=== PATIENT | female | born 1985 | race Caucasian/White ===

== ENCOUNTER 2018-08-02 07:25 | Inpatient (IN) | payer BC ==
[2018-08-02] MEDS ORDERED: AMPICILLIN - 2 GM in SODIUM CHLORIDE 100 ML IVPB ONE (07:45)
[2018-08-02 08:46] VITALS: BMI 29.8
[2018-08-02 08:52] LABS: BASO % 0.9 % (0-2.0); EOS % 2.1 % (0-4.5); HEMATOCRIT 34.6 % (32.4-45.2); HEMOGLOBIN 12.5 GM/dL (10.7-15.3); LYMPH % 25.7 % (8-40); MCH 32.8 pg (25.7-33.7); MEAN PLT VOLUME 10.2 fl (7.5-11.1); NEUT % 64.3 % (42.8-82.8); PLATELET COUNT 122 K/MM3 (134-434); RDW 13.8 % (11.6-15.6); WHITE BLOOD COUNT 6.3 K/mm3 (4.0-10.0)
[2018-08-02] MEDS ORDERED: ELECTROLYTE-148 SOLN 1,000 ML IV SCH (09:00)
[2018-08-02 09:11] LABS: INR 0.97 (0.83-1.09); PROTHROMBIN TIME (PATIENT) 11.4 SEC (9.7-13.0)
[2018-08-02 09:14] LABS: ACTIVATED PTT 26.3 SECONDS (25.2-36.5)
[2018-08-02] MEDS ORDERED: FENTANYL/BUPIVACAINE/NS/PF - PCEA - 50 ML DISP.SYRIN EP ONE ×2 (09:26→14:47)
[2018-08-02 09:27] LABS: ANION GAP 10 MMOL/L (8-16); BLOOD UREA NITROGEN 6 mg/dL (7-18); CALCIUM 7.8 mg/dL (8.5-10.1); CHLORIDE 108 mmol/L (98-107); CO2 22 mmol/L (21-32); CREATININE 0.4 mg/dL (0.55-1.3); GLUCOSE,RANDOM 95 mg/dL (74-106); SODIUM 140 mmol/L (136-145)
[2018-08-02] MEDS ORDERED: BUTORPHANOL TARTRATE 1 MG/ML VIAL ONE ×2 (09:28)
[2018-08-02] MEDS ORDERED: PROMETHAZINE HCL 25 MG/1 ML VIAL ONE (09:28)
--- NOTE | 2018-08-02 09:37 | HP ---
Past Medical History - Primary Care Physician PCP:: Uche Junior - Admission Chief Complaint: 32yo P1 with at EGA 38wk admitted with spontaneous labor History of Present Illness: SROM at 6:30am Vaginal GBS positive - Past Medical History Cardiovascular: No: AFIB, Aneurysm, Aortic Insufficiency, Aortic Stenosis, CAD, CHF, Deep Vein Thrombosis, HTN, Hyperlipdemia, LA, Mitral Insufficiency, Mitral Stenosis, Murmur, Pulmonary Hypertension, Other Pulmonary: No: Asthma, Bronchitis, Cancer, COPD, O2 Dependent, Pneumonia, Previously Intubated, Pulmonary Embolus, Pulmonary Fibrosis, Sleep Apnea, Other Gastrointestinal: No: Ascites, Cancer, Constipation, Crohn's Disease, Diverticulitis, Diverticulosis, Esophageal Varices, Gastritis, GERD, GI Bleed, Hemorrhoids, Hiatal Hernia, Inflamatory Bowel Disease, Irritable Bowel Disease, Pancreatitis, Peptic Ulcer Disease, Ulcerative Colitis, Other Hepatobiliary: No: Cirrhosis, Cholelithiasis, Cholecystitis, Choledocholithiasis , Hepatitis A, Hepatitis B, Hepatitis C, Other Renal/: No: Renal Failure, Renal Inusuff, BPH, Cancer, Hematuria, Hemodialysis , Neurogenic Bladder, Renal Calculi, UTI, Other Reproductive: No: Ectopic , Endometriosis, Fibroids, PID, Polycystic Ovary Syndrome, Postmenopausal, Other ...: 3 ...Para: 1 () ...Term: 0 ...: 1 ...Spon : 1 ...Induced : 0 ...Multiple Gestation: 0 ...LMP: 11/12/17 ... Weeks Gestation by Dates: 37.2 ...EDC by Dates: 08/20/18 ...EDC by Sono: 08/17/18 Heme/Onc: No: Anemia, B12 Deficiency, Bleeding Disorder, Cancer, Current Chemotherapy, Current Radiation Therapy, Hemochromatosis, Hypercoaguable State, Myeloproliferative Synd, Sickle Cell Disease, Sickle Cell Trait, Thrombocytopenia, Other Infectious Disease: No: AIDS, C-Diff, Herpes Zoster, HIV, MRSA, STD's, Tuberculosis, VREF, Other Musculoskeletal: No: Bursitis, Chronic low back pain, Hemiparesis, Hemiplegia, Osteoarthritis, Paraplegia, Other Rheumatology: No: Fibromyalgia, Gout, Lupus, Rheumatoid Arthritis, Sarcoidosis, Vasculitis, Other ENT: No: Allergic Rhinitis, Sinusitis, Other Endocrine: No: Johan's Disease, Marietta's Disease, Diabetes Insipidus, Diabetes Mellitus, Hyperparathyroidism, Hyperthyroidism, Hypothyroidism, Osteopenia, SIADH, Other Dermatology: No: Basal Cell, Cellulitis, Eczema, Melanoma, Psoriasis, Squamous Cell, Other - Past Surgical History Past Surgical History: Yes: Breast Biopsy (left breast fibroadenoma excised) Hx Myomectomy: No Hx Transabdominal Cerclage: No - Smoking History Smoking history: Never smoked Have you smoked in the past 12 months: No - Alcohol/Substance Use Hx Alcohol Use: No History of Substance Use: reports: None - Social History Usual Living Arrangement: Yes: With Spouse, With Child ADL: Independent History of Recent Travel: No Home Medications - Allergies Allergies/Adverse Reactions: Allergies Allergy/AdvReac Type Severity Reaction Status Date / Time No Known Allergies Allergy Verified 08/02/18 08:13 - Home Medications Home Medications: Ambulatory Orders Pnv No.95/Ferrous Fum/Folic AC [ Vitamin Tablet] 1 each PO DAILY Family Disease History - Family Disease History Family History: Unremarkable Review of Systems - Review of Systems Constitutional: reports: Other (labor/contractions) Eyes: reports: No Symptoms HENT: reports: No Symptoms Neck: reports: No Symptoms Cardiovascular: reports: No Symptoms Respiratory: reports: No Symptoms Gastrointestinal: reports: No Symptoms Genitourinary: reports: No Symptoms Breasts: reports: No Symptoms Reported Musculoskeletal: reports: No Symptoms Integumentary: reports: No Symptoms Neurological: reports: No Symptoms Endocrine: reports: No Symptoms Hematology/Lymphatic: reports: No Symptoms Psychiatric: reports: No Symptoms Pain Intensity: 0 Physical Exam - Maternity Vital Signs: Vital Signs Temperature 97.9 F 08/02/18 08:00 Pulse Rate 90 08/02/18 08:00 Respiratory Rate 20 08/02/18 08:00 Blood Pressure 124/76 08/02/18 08:00 O2 Sat by Pulse Oximetry (%) Constitutional: Yes: Well Nourished, No Distress, Calm Eyes: Yes: WNL, Conjunctiva Clear HENT: Yes: WNL, Atraumatic, Normocephalic Neck: Yes: WNL, Supple, Trachea Midline Cardiovascular: Yes: WNL, Regular Rate and Rhythm Lungs: Clear to auscultation Breast(s): Yes: WNL - Abdominal Exam/OB Fundal Height: 38 Number of Fetuses: Single Presentation: Vertex Contractions: Yes Regularity: Regular Intensity: Unaware Monitor Mode: External Heart Rate (range): 130 Heart Rate Location: Midline Category: I Accelerations: Non-Uniform Decelerations: None - Vaginal Exam/OB Vaginal Bleediing: No Speculum Exam: No Dilatation (cm): 4 Effacement (%): 80 Amniotic Membrane Status: Leaking Amniotic Fluid: Yes: Clear Presentation: Vertex/Position Station: -2 - Physical Exam Musculoskeletal: Yes: WNL Extremities: Yes: WNL Edema: No Integumentary: Yes: WNL Deep Tendon Reflex Grade: Normal +2 ...Motor Strength: WNL Psychiatric: Yes: WNL, Alert, Oriented - Labs Lab Results: CBC, BMP 08/02/18 08:45 08/02/18 08:45 Hemorrhage Risk Assessment - Risk Factors Medium Risk Factors: Yes: None High Risk Factors: Yes: None Risk Score: 1 Risk Level: Medium Risk Imaging - Results Ultrasound: Report Reviewed Assessment/Plan 32yo P1 with at EGA 38wk admitted with spontaneous labor. Fetus with Category I tracing. Pt requested epidural. Plan to monitor labor progress.
[2018-08-02] MEDS ORDERED: NALOXONE HCL 0.4 MG/ML VIAL IVPUSH PRN (09:50)
[2018-08-02] MEDS ORDERED: LIDO 2%/EPI 1:200000 PRESRVFRE (20 ML SDVIAL) ONE (09:51)
[2018-08-02] MEDS ORDERED: TUBERCULIN PPD 5 TU/0.1ML SYRINGE (IN PATIENT USE ONLY) ID ONE (10:00)
[2018-08-02] MEDS: FENTANYL/BUPIVACAINE/NS/PF - PCEA - 50 ML DISP.SYRIN EP SCH ×2 (10:05→14:45)
[2018-08-02] MEDS: ELECTROLYTE-148 SOLN 1,000 ML IV SCH ×2 (10:31→14:53)
[2018-08-02] MEDS ORDERED: AMPICILLIN SODIUM 1 GM VIAL ONE ×2 (11:42→16:00)
[2018-08-02] MEDS ORDERED: SODIUM CHLORIDE 100 ML IVPB ONE ×2 (11:42→16:00)
[2018-08-02] MEDS: AMPICILLIN - 1 GM in SODIUM CHLORIDE 100 ML IVPB SCH ×2 (11:47→16:00)
[2018-08-02] MEDS ORDERED: BUPIVACAINE HCL/PF 0.25% (2.5MG/ML) 10 ML VIAL ONE (14:46)
[2018-08-02] MEDS ORDERED: OXYTOCIN 20 UNITS in 0.9% NS 20 UNIT/1,000 ML INFUS.BAG IV ONE (15:18)
[2018-08-02] MEDS ORDERED: LIDOCAINE HCL 1% PRESERVATIVE FREE - 30ML VIAL ONE (16:48)
[2018-08-02] MEDS ORDERED: IBUPROFEN 600 MG TABLET (FP) PO ONE (17:44)
[2018-08-02] MEDS: IBUPROFEN 600 MG TABLET (FP) PO PRN ×2 (17:45→21:48)
[2018-08-02] MEDS ORDERED: METHYLERGONOVINE MALEATE 0.2 MG/1 ML AMP IM PRN (17:47)
[2018-08-02] MEDS ORDERED: BENZOCAINE 20% 57 GM BOTTLE TP PRN (17:47)
[2018-08-02] MEDS ORDERED: BISACODYL 10 MG SUPP.RECT RC PRN (17:47)
[2018-08-02] MEDS ORDERED: WITCH HAZEL 50% (TUCKS) 40 PAD/JAR PAD TP PRN (17:47)
[2018-08-02] MEDS ORDERED: BENZOCAINE 28 GM HEMORRHOIDAL OINTMENT TP PRN (17:47)
[2018-08-02] MEDS ORDERED: OXYTOCIN 20 UNITS in 0.9% NS 1,000 ML IV SCH (18:00)
[2018-08-02] MEDS ORDERED: OXYTOCIN 20 UNITS in 0.9% NS 20 UNIT/1,000 ML INFUS.BAG IV SCH (18:00)
[2018-08-02] MEDS: oxyCODONE HCL 5 MG TABLET PO PRN (21:50)
[2018-08-03] MEDS: ACETAMINOPHEN 325 MG TABLET (FP) PO PRN ×3 (02:21→16:24)
[2018-08-03] MEDS: IBUPROFEN 600 MG TABLET (FP) PO PRN ×4 (02:21→21:20)
[2018-08-03] MEDS: oxyCODONE HCL 5 MG TABLET PO PRN ×3 (04:52→21:21)
[2018-08-03 07:14] LABS: BASO % 0.5 % (0-2.0); EOS % 2.1 % (0-4.5); HEMATOCRIT 29.6 % (32.4-45.2); HEMOGLOBIN 10.4 GM/dL (10.7-15.3); LYMPH % 20.1 % (8-40); MCH 32.2 pg (25.7-33.7); MCHC 35.1 g/dl (32.0-36.0); MEAN CELL VOLUME 91.8 fl (80-96); MEAN PLT VOLUME 9.8 fl (7.5-11.1); MONO % 5.3 % (3.8-10.2); PLATELET COUNT 120 K/MM3 (134-434); RBC 3.23 M/mm3 (3.60-5.2); RDW 13.9 % (11.6-15.6); WHITE BLOOD COUNT 9.5 K/mm3 (4.0-10.0)
--- NOTE | 2018-08-03 07:59 | PN ---
Post Progress Note - Subjective Subjective: Patient without acute complaints. Reports tolerating oral intake without nausea or vomiting. Ambulating without dizziness. Denies fevers or chills. Pain well controlled with oral pain medication. without difficulty. Passing flatus. Post Day: 1 Type of Delivery: Vital Signs: Vital Signs Temperature 98.6 F 08/03/18 05:14 Pulse Rate 82 08/03/18 05:14 Respiratory Rate 18 08/03/18 05:14 Blood Pressure 120/86 08/03/18 05:14 O2 Sat by Pulse Oximetry (%) 99 08/02/18 17:45 Breast Exam: Yes: Soft Uterus: Yes: Fundus Firm, Fundus below umbilicus Abdomen/GI: Yes: Abdomen soft, Passing flatus, Tolerating PO. No: Abdominal Distention, Tender Lochia: Yes: Serosa Lochia, amount: Small Extremities: Yes: Calves non-tender, Edema (trace) Activity: Ambulating - Labs Labs: CBC WBC 6.3 K/mm3 (4.0-10.0) 08/02/18 08:45 RBC 3.80 M/mm3 (3.60-5.2) 08/02/18 08:45 Hgb 12.5 GM/dL (10.7-15.3) 08/02/18 08:45 Hct 34.6 % (32.4-45.2) 08/02/18 08:45 MCV 91.0 fl (80-96) 08/02/18 08:45 MCH 32.8 pg (25.7-33.7) 08/02/18 08:45 MCHC 36.0 g/dl (32.0-36.0) 08/02/18 08:45 RDW 13.8 % (11.6-15.6) 08/02/18 08:45 Plt Count 122 K/MM3 (134-434) L 08/02/18 08:45 MPV 10.2 fl (7.5-11.1) 08/02/18 08:45 Absolute Neuts (auto) 4.0 K/mm3 (1.5-8.0) 08/02/18 08:45 Neutrophils % 64.3 % (42.8-82.8) D 08/02/18 08:45 Lymphocytes % 25.7 % (8-40) D 08/02/18 08:45 Monocytes % 7.0 % (3.8-10.2) D 08/02/18 08:45 Eosinophils % 2.1 % (0-4.5) 08/02/18 08:45 Basophils % 0.9 % (0-2.0) D 08/02/18 08:45 Nucleated RBC % 0 % (0-0) 08/02/18 08:45 Assessment/Plan 32 yo PPD # 1 s/p , afebrile, vital signs stable, doing well 1. Continue routine care. 2. AM CBC with mild anemia 3. Rh negative, screen pending 4. Encourage ambulation 5. Continue oral pain medication 6. Anticipate discharge home day #2
[2018-08-03] MEDS: PRENATAL VITAMINS W/ FOLIC ACID TABLET (FP) PO SCH (09:33)
[2018-08-03] MEDS ORDERED: SENNOSIDES/DOCUSATE COMBO (SENNA PLUS) TABLET (UD) PO PRN (22:00)
[2018-08-04] MEDS: ACETAMINOPHEN 325 MG TABLET (FP) PO PRN (02:49)
[2018-08-04] MEDS: IBUPROFEN 600 MG TABLET (FP) PO PRN ×2 (02:49→06:43)
[2018-08-04] MEDS: oxyCODONE HCL 5 MG TABLET PO PRN (06:43)
[2018-08-04 07:32] VITALS: BP 120/71; PULSE 76; TEMP 97.7
--- NOTE | 2018-08-04 09:00 | PN ---
Post Progress Note - Subjective Subjective: No complaints. Doing well. Pain is controlled. Breast feeding w/o problems Post Day: 2 Type of Delivery: Vital Signs: Vital Signs Temperature 97.7 F 08/04/18 07:15 Pulse Rate 76 08/04/18 07:15 Respiratory Rate 18 08/04/18 07:15 Blood Pressure 120/71 08/04/18 07:15 O2 Sat by Pulse Oximetry (%) 99 08/02/18 17:45 Breast Exam: Yes: Soft Uterus: Yes: Fundus Firm, Fundus below umbilicus, Non-tender Abdomen/GI: Yes: Abdomen soft Lochia: Yes: Rubra Lochia, amount: Small Extremities: Yes: Calves non-tender Perineum: Yes: Laceration (repair intact) Activity: Ambulating - Labs Labs: CBC WBC 9.5 K/mm3 (4.0-10.0) 08/03/18 07:04 RBC 3.23 M/mm3 (3.60-5.2) L 08/03/18 07:04 Hgb 10.4 GM/dL (10.7-15.3) L 08/03/18 07:04 Hct 29.6 % (32.4-45.2) L 08/03/18 07:04 MCV 91.8 fl (80-96) 08/03/18 07:04 MCH 32.2 pg (25.7-33.7) 08/03/18 07:04 MCHC 35.1 g/dl (32.0-36.0) 08/03/18 07:04 RDW 13.9 % (11.6-15.6) 08/03/18 07:04 Plt Count 120 K/MM3 (134-434) L 08/03/18 07:04 MPV 9.8 fl (7.5-11.1) 08/03/18 07:04 Absolute Neuts (auto) 6.9 K/mm3 (1.5-8.0) 08/03/18 07:04 Neutrophils % 72.0 % (42.8-82.8) 08/03/18 07:04 Lymphocytes % 20.1 % (8-40) D 08/03/18 07:04 Monocytes % 5.3 % (3.8-10.2) 08/03/18 07:04 Eosinophils % 2.1 % (0-4.5) 08/03/18 07:04 Basophils % 0.5 % (0-2.0) 08/03/18 07:04 Nucleated RBC % 0 % (0-0) 08/03/18 07:04 Assessment/Plan 32yo P2 s/p , doing well stable, afebrile. Asymptomatic for anemia. care instructions reviewed. Continue routine care. Ambulation encouraged Discharge instruction reviewed.
--- NOTE | 2018-08-04 09:01 | DS ---
Physical Exam-FUSELAGE FRAMER Vital Signs: Vital Signs Temperature 97.7 F 08/04/18 07:15 Pulse Rate 76 08/04/18 07:15 Respiratory Rate 18 08/04/18 07:15 Blood Pressure 120/71 08/04/18 07:15 O2 Sat by Pulse Oximetry (%) 99 08/02/18 17:45 Constitutional: Yes: Well Nourished, No Distress, Calm Eyes: Yes: WNL, Conjunctiva Clear HENT: Yes: WNL, Atraumatic, Normocephalic Neck: Yes: WNL, Supple, Trachea Midline Cardiovascular: Yes: WNL, Regular Rate and Rhythm Respiratory: Yes: WNL, Regular, CTA Bilaterally Gastrointestinal: Yes: WNL, Normal Bowel Sounds, Soft ...Rectal Exam: Yes: Deferred Renal/: Yes: WNL ....Post : Yes: Uterus firm, Uterus non-tender, Slight lochia rubra Breast(s): Yes: WNL Musculoskeletal: Yes: WNL Extremities: Yes: WNL Integumentary: Yes: WNL Neurological: Yes: WNL, Alert, Oriented ...Motor Strength: WNL Psychiatric: Yes: WNL, Alert, Oriented Labs: CBC, BMP 08/03/18 07:04 08/02/18 08:45 Delivery - Delivery Vaginal Delivery: No Problems, Spontaneous Type of Anesthesia: Epidural Episiotomy/Laceration: 1st degree EBL (cc): 350 Delivery, Single - Stages of Labor Date 1st Stage Initiatied: 08/02/18 Time 1st Stage Initiated: 06:30 Date 2nd Stage Initiated: 08/02/18 Time 2nd Stage Initiated: 16:00 Date of Delivery: 08/02/18 Time of Delivery: 16:45 Time Placenta Delivered: 16:50 Placenta: Yes: Spontaneous, Normal Configuration - Condition of Infant Bag Machine Operator/Chief Dietitian Present: No Gender: Female Weight: 3.232 kg Total Hours ROM (Hrs/Mins): 10/20 - 1 Minute Total Score: 9 5 Minutes Total Score: 10 - Feeding Plan Initial Plan: Exclusive throughout hospitalization Benefits of Exclusively reinforced: Yes Discharge Summary Reason For Visit: LABOR Labor at term Procedures: Principal: Hospital Course: Normal recovery Condition: Good - Instructions Diet, Activity, Other Instructions: Physical activity Resume your normal everyday activity as tolerated no heavy lifting or exercise until seen by your surgeon. You may walk unlimited danielle of and climb stairs. You may resume driving the car when you feel safe and comfortable behind the wheel. No sexual activity as instructed. Wound care If you have a bandage, leave it on, and keep dry for 48-72 hours. After that time discard the outer bandage. If they are tapes on the skin under the out of bandage leave them in place. They will peel off in the next 7 to 10 days. Do Not Peel them off. You may shower the day after surgery. If there are tapes present on the skin, you may shower over them. Diet There are no dietary restrictions. Eat healthy, high-fiber foods. Drink 6 to 8 glasses of liquid each day. This will assist in keeping your bowels are regular. Pain management You may take Tylenol or acetaminophen or Ibuprofen (for example, Motrin, Advil etc.) from my pain prescription medication is ordered should be taken as prescribed for moderate to severe pain. Call MD for any of the following: Severe pain not relieved by medication Fever of 101 or higher Excessive bleeding or drainage on dressing Inability to urinate Referrals: Uche Junior MD [Staff Physician] - Disposition: HOME - Home Medications Comprehensive Discharge Medication List: Ambulatory Orders Pnv No.95/Ferrous Fum/Folic AC [ Vitamin Tablet] 1 each PO DAILY
[2018-08-04] MEDS: PRENATAL VITAMINS W/ FOLIC ACID TABLET (FP) PO SCH (09:39)
== END 2018-08-04 11:15 | disposition home or self-care (01) | DRG 807 ==
LOC: JLDR 07:25 → J3W 20:18
PROVIDERS: ADMIT Obstetrics & Gynecology; ATTEND Obstetrics & Gynecology
PROC: 10E0XZZ Delivery of Products of Conception, External Approach (ICD-10-PCS; principal; 2018-08-02)
PROC: 0HQ9XZZ Repair Perineum Skin, External Approach (ICD-10-PCS; 2018-08-02)
PROC: 0W8NXZZ Division of Female Perineum, External Approach (ICD-10-PCS; 2018-08-02)
DX: O70.0 First degree perineal laceration during delivery (principal); Z37.0 Single live birth; O99.013 Anemia complicating pregnancy, third trimester; Z3A.38 38 weeks gestation of pregnancy; Z22.330 Carrier of Group B streptococcus
CPT/HCPCS: 36415; 59409; 80048; 85025; 85461; 85610; 85730; 86593; 86850; 86870; 86900; 86901; 86902

== ENCOUNTER 2018-08-26 10:49 | Emergency (ER) | payer BC ==
[2018-08-26 10:55] VITALS: BP 122/67; PULSE 70; TEMP 98.2; BMI 27.1
--- NOTE | 2018-08-26 12:09 | PDOC ---
Documentation entered by Alexia Ruvalcaba SCRIBE, acting as scribe for Pacheco Martinez MD. Pacheco Martinez MD: This documentation has been prepared by the Jordon lawson Amanda, SCRIBE, under my direction and personally reviewed by me in its entirety. I confirm that the documentation accurately reflects all work, treatment, procedures, and medical decision making performed by me. History of Present Illness - General Chief Complaint: Chest Pain Stated Complaint: CHEST PAIN Time Seen by Provider: 08/26/18 11:23 History Source: Patient Exam Limitations: No Limitations - History of Present Illness Initial Comments: 08/26/18 12:05 The patient is a 32 year old female, with a significant past medical history of PE (5 years ago), 3 weeks natural delivery without complication and currently , who presents to the emergency department with 2 weeks of left sided pleuritic chest pain with associated intermittent shortness of breath and dizziness today. She states the pain is intermittent, 10/10 and sharp. She states she was prompted to come to the ED today because the chest pain was not improving after 2 weeks, and she experienced 4 hours of chest pain this morning which is longer duration than what she has been experiencing prior to today. She denies pain right now. The patient denies headache. The patient denies fever, chills, nausea, vomit, diarrhea and constipation. The patient denies dysuria, frequency, urgency and hematuria. Allergies: NKDA Social history: denies tobacco or ETOH Past History - Past Medical History Allergies/Adverse Reactions: Allergies Allergy/AdvReac Type Severity Reaction Status Date / Time No Known Allergies Allergy Verified 08/02/18 08:13 Home Medications: Ambulatory Orders Pnv No.95/Ferrous Fum/Folic AC [ Vitamin Tablet] 1 each PO DAILY Asthma: No Cancer: No Cardiac Disorders: No COPD: No Diabetes: No HTN: No Seizures: No Thyroid Disease: No - Immunization History Immunization Up to Date: No - Suicide/Smoking/Psychosocial Hx Smoking History: Never smoked Have you smoked in the past 12 months: No Information on smoking cessation initiated: No Hx Alcohol Use: No Drug/Substance Use Hx: No Substance Use Type: None Hx Substance Use Treatment: No Review of Systems - Review of Systems Able to Perform ROS?: Yes Comments:: 08/26/18 12:05 GENERAL/CONSTITUTIONAL: No fever or chills. No weakness. HEAD, EYES, EARS, NOSE AND THROAT: No change in vision. No ear pain or discharge. No sore throat. CARDIOVASCULAR: (+) chest pain, shortness of breath. RESPIRATORY: No cough, wheezing, or hemoptysis. GASTROINTESTINAL: No nausea, vomiting, diarrhea or constipation. GENITOURINARY: No dysuria, frequency, or change in urination. MUSCULOSKELETAL: No joint or muscle swelling or pain. No neck or back pain. SKIN: No rash NEUROLOGIC: (+) dizziness. No headache, loss of consciousness, or change in strength/sensation. ENDOCRINE: No increased thirst. No abnormal weight change. HEMATOLOGIC/LYMPHATIC: No anemia, easy bleeding, or history of blood clots. ALLERGIC/IMMUNOLOGIC: No hives or skin allergy. *Physical Exam - Vital Signs Last Vital Signs Temp Pulse Resp BP Pulse Ox 98.2 F 70 18 122/67 97 08/26/18 10:52 08/26/18 10:52 08/26/18 10:52 08/26/18 10:52 08/26/18 10:52 - Physical Exam Comments: 08/26/18 12:06 GENERAL: Awake, alert, and fully oriented, in no acute distress HEAD: No signs of trauma EYES: PERRLA, EOMI, sclera anicteric, conjunctiva clear ENT: Auricles normal inspection, hearing grossly normal, nares patent, oropharynx clear without exudates. Moist mucosa NECK: Normal ROM, supple, no lymphadenopathy, JVD, or masses LUNGS: Breath sounds equal, clear to auscultation bilaterally. No wheezes, and no crackles HEART: Regular rate and rhythm, normal S1 and S2, no murmurs, rubs or gallops ABDOMEN: Soft, nontender, normoactive bowel sounds. No guarding, no rebound. No masses EXTREMITIES: Normal range of motion, no edema. No clubbing or cyanosis. No cords, erythema, or tenderness NEUROLOGICAL: Cranial nerves II-XII intact. Normal speech, normal gait. Sensation intact in upper and lower extremities. 5/5 motor strength in upper and lower extremities. No pronator drift. Finger to nose intact. Rapid alternations intact. SKIN: Warm, Dry, normal turgor, no rashes or lesions noted. Heart Score/ECG Review #1 ECG reviewed & interpreted by me at: 10:50 08/26/18 12:25 NSR 62, no std/neo, normal axis, normal intervals, QTC 406 msec. normal ecg ED Treatment Course - LABORATORY CBC & Chemistry Diagram: 08/26/18 12:10 08/26/18 12:10 Medical Decision Making - Medical Decision Making 08/26/18 12:09 A portion of this note was documented by scribe services under my direction. I have reviewed the details of the note, within reason, and agree with the documentation with the following case summary and management plan written by me. Patient treated in the ED. Nursing notes are reviewed and incorporated into the medical decision-making. Vital signs reviewed. Peripheral IV access obtained by the nurse, laboratory studies are drawn and sent, reviewed and interpreted by myself. Vital Signs Temp Pulse Resp BP Pulse Ox 98.2 F 70 18 122/67 97 08/26/18 10:52 08/26/18 10:52 08/26/18 10:52 08/26/18 10:52 08/26/18 10:52 32 yo F pt/ hx of PE 5 years ago, 3 wks ago presents with pleuritic chest pain intermittent x 2 weeks. Denies pain now, but pt concerned about PE. Denies early family history of cardiac disease. Denies smoking hx. Low suspicion for ACS but will need to r/o PE. CTA chest. Labs, troponin. Reassess. ECG is normal and reassuring. If workup is negative, pt can be d/c'd home 08/26/18 13:21 CBC, BMP 08/26/18 12:10 08/26/18 12:10 CMP Sodium 138 mmol/L (136-145) 08/26/18 12:10 Potassium 4.9 mmol/L (3.5-5.1) 08/26/18 12:10 Chloride 106 mmol/L (98-107) 08/26/18 12:10 Carbon Dioxide 27 mmol/L (21-32) 08/26/18 12:10 Anion Gap 5 MMOL/L (8-16) L 08/26/18 12:10 BUN 12 mg/dL (7-18) 08/26/18 12:10 Creatinine 0.6 mg/dL (0.55-1.3) 08/26/18 12:10 Creat Clearance w eGFR 117.38 (>60) 08/26/18 12:10 Random Glucose 82 mg/dL (74-106) 08/26/18 12:10 Calcium 9.1 mg/dL (8.5-10.1) 08/26/18 12:10 Total Bilirubin 0.9 mg/dL (0.2-1) 08/26/18 12:10 AST 27 U/L (15-37) 08/26/18 12:10 ALT 22 U/L (13-61) 08/26/18 12:10 Alkaline Phosphatase 51 U/L (45-117) 08/26/18 12:10 Creatine Kinase 106 U/L (26-192) 08/26/18 12:10 Troponin I < 0.02 ng/ml (0.00-0.05) 08/26/18 12:10 Total Protein 7.6 g/dl (6.4-8.2) 08/26/18 12:10 Albumin 4.0 g/dl (3.4-5.0) 08/26/18 12:10 Serum , Qual Negative 08/26/18 12:17 08/26/18 14:41 CT chest reviewed. No PE. Pt feels reassured. Copies of the results given. Will d/c pt with PMD follow up. I discussed the physical exam findings, ancillary test results and final diagnoses with the patient. I answered all of the patient's questions. The patient was satisfied with the care received and felt comfortable with the discharge plan and treatment plan. The patient will call their primary care physician within 24 hours to arrange follow-up and will return to the Emergency Department with any new, persistant or worsening symptoms. *DC/Admit/Observation/Transfer Diagnosis at time of Disposition: Atypical chest pain - Discharge Dispostion Disposition: HOME Condition at time of disposition: Stable Decision to Admit order: No - Referrals - Patient Instructions Printed Discharge Instructions: DI for Atypical Chest Pain Additional Instructions: Your EKG, blood work including troponin and CT scan of your chest to rule out pulmonary embolism are normal. Please follow up with your doctor. - Post Discharge Activity
[2018-08-26 12:26] LABS: BASO % 0.9 % (0-2.0); EOS % 2.7 % (0-4.5); HEMATOCRIT 39.3 % (32.4-45.2); HEMOGLOBIN 13.5 GM/dL (10.7-15.3); LYMPH % 63.9 % (8-40); MCH 31.5 pg (25.7-33.7); MCHC 34.4 g/dl (32.0-36.0); MEAN CELL VOLUME 91.4 fl (80-96); MEAN PLT VOLUME 10.3 fl (7.5-11.1); MONO % 6.2 % (3.8-10.2); NEUT % 26.3 % (42.8-82.8); PLATELET COUNT 194 K/MM3 (134-434); RBC 4.29 M/mm3 (3.60-5.2); RDW 13.3 % (11.6-15.6); WHITE BLOOD COUNT 3.6 K/mm3 (4.0-10.0)
[2018-08-26 12:38] LABS: INR 1.04 (0.83-1.09); PROTHROMBIN TIME (PATIENT) 12.3 SEC (9.7-13.0)
[2018-08-26 12:41] LABS: ACTIVATED PTT 34.5 SECONDS (25.2-36.5)
[2018-08-26 13:00] LABS: ALK PHOS 51 U/L (45-117); ANION GAP 5 MMOL/L (8-16); BILIRUBIN,TOTAL 0.9 mg/dL (0.2-1); BLOOD UREA NITROGEN 12 mg/dL (7-18); CALCIUM 9.1 mg/dL (8.5-10.1); CHLORIDE 106 mmol/L (98-107); CO2 27 mmol/L (21-32); CREATININE 0.6 mg/dL (0.55-1.3); GLUCOSE,RANDOM 82 mg/dL (74-106); POTASSIUM 4.9 mmol/L (3.5-5.1); SGOT/AST 27 U/L (15-37); SGPT/ALT 22 U/L (13-61); SODIUM 138 mmol/L (136-145); TOT PROT 7.6 g/dl (6.4-8.2)
[2018-08-26 13:07] LABS: ANISOCYTOSIS 0; HELMET CELLS 0; HOWELL-JOLLY BODIES 0; MACROCYTOSIS 0; OVALOCYTE 0; PLATELET ESTIMATE NORMAL; ROULEAU 0; SICKELED CELLS 0; TARGET CELLS 0; TEAR DROP CELLS 0; TOXIC GRANULATION 0
--- NOTE | 2018-08-26 15:26 | EKG ---
Test Reason : Blood Pressure : / mmHG Vent. Rate : 062 BPM Atrial Rate : 062 BPM P-R Int : 140 ms QRS Dur : 090 ms QT Int : 400 ms P-R-T Axes : 038 039 042 degrees QTc Int : 406 ms NORMAL SINUS RHYTHM NORMAL ECG WHEN COMPARED WITH ECG OF 19-FEB-2014 23:55, VENT. RATE HAS DECREASED BY 41 BPM QT HAS SHORTENED Confirmed by MARVEL AGOSTO MD ([id number]) on 08/26/2018 3:25:58 PM Referred By: Confirmed By:MARVEL AGOSTO MD
== END 2018-08-26 15:02 | disposition home or self-care (01) ==
LOC: JER 10:49
DX: O90.89 Other complications of the puerperium, not elsewhere classified (principal); R07.9 Chest pain, unspecified; Z86.711 Personal history of pulmonary embolism
CPT/HCPCS: 36415; 71275-TC; 80053; 82550; 84484; 84703; 85025; 85610; 85730; 93005; 93010; 99283-25